=== PATIENT | male | born 1950 | race Caucasian/White ===

== ENCOUNTER → 2017-11-27 | Outpatient (CLI) | payer MEDICARE ==
[~2017-11-27] MED LIST: ASPI81TA82 PO; ATOR40TA49 PO; GLUC500C3 PO; GNP1000T4 PO; LIPO150C3 PO; METO25 PO; OCUVTAB PO; PLAV75TA PO; TAB-TAB PO; ULTR50TA PO; VITA-13 PO
--- NOTE | 2017-11-30 10:10 | RADRPT ---
EXAM DATE/TIME: 11/27/2017 14:30 [facility] COMPARISON : No previous studies available for comparison. INDICATIONS : Review images and chart for renal biopsy and cryo-ablation. HISTORY OF PRESENT ILLNESS: 67-year-old with posterior left renal mass evaluated with prior CT and MRI. Lesion would be amenable to percutaneous biopsy and cryoablation IMAGING STUDIES: Outside MRI and CT of the abdomen ASSESSMENT: Left renal mass, presumably RCCA. PLAN: Left renal biopsy and cryoablation. Azam Bynum MD on November 30, 2017 at 10:06 Board Certified Radiologist. This report was verified electronically.
== END ==
LOC: HRAD 14:19
PROVIDERS: ATTEND Urology
DX: N28.89 Other specified disorders of kidney and ureter (principal)

== ENCOUNTER 2017-12-15 06:54 | Day surgery (SDC) | payer MEDICARE ==
[2017-12-15] VITALS (10 sets, daily range): BP systolic 122–154; BP diastolic 73–91; PULSE 57–80; RESP 16–20; TEMP 97.6–97.7; O2SAT 93–98
[~2017-12-15] VITALS: Ht 175.3 cm; Wt 95.5 kg
[2017-12-15] MEDS ORDERED: ASPI-516 CHEW (07:33)
[2017-12-15] MEDS ORDERED: ATOR40TA16 PO (07:33)
[2017-12-15] MEDS ORDERED: METO25TA3 PO (07:33)
[2017-12-15] MEDS ORDERED: PLAV75TA29 PO (07:33)
[2017-12-15] MEDS ORDERED: CHLORHEXIDINE GLUCONATE 2 % 1 PACK (2 CLOTHS) TOPICAL PRN (08:15)
[2017-12-15] MEDS ORDERED: POVIDONE IODINE 5% (ANTISEPSIS KIT) 4 APPLICATIONS EACH NARE PRN (08:15)
[2017-12-15] MEDS ORDERED: METOPROLOL TARTRATE 25 MG TAB PO PRN (08:15)
[2017-12-15] MEDS ORDERED: SODIUM CHLORID 0.9% 500 ML IV PRN (08:15)
[2017-12-15] MEDS ORDERED: LACTATED RINGER'S 1000 ML IV PRN (08:15)
[2017-12-15 08:24] LABS: AUTOMATED NEUTROPHIL # 3.3 TH/MM3 (1.8-7.7); BASOPHIL % 0.5 % (0.0-2.0); EOSINOPHIL # 0.1 TH/MM3 (0-0.4); EOSINOPHIL % 2.3 % (0.0-4.0); HEMATOCRIT 44.9 % (39.0-51.0); HEMOGLOBIN 15.7 GM/DL (13.0-17.0); LYMPH % 23.1 % (9.0-44.0); LYMPHOCYTE # 1.3 TH/MM3 (1.0-4.8); MEAN CELL VOLUME 97.9 FL (80.0-100.0); MEAN CORPUSCULAR HEMOGLOBIN 34.1 PG (27.0-34.0); MEAN CORPUSCULAR HGB CONC 34.9 % (32.0-36.0); MEAN PLATELET VOLUME 6.7 FL (7.0-11.0); MONO % 14.9 % (0.0-8.0); MONOCYTE # 0.8 TH/MM3 (0-0.9); NEUT % 59.2 % (16.0-70.0); PLATELET COUNT 212 TH/MM3 (150-450); RED BLOOD COUNT 4.59 MIL/MM3 (4.50-5.90); RED CELL DISTRIBUTION WIDTH 14.6 % (11.6-17.2); WHITE BLOOD COUNT 5.5 TH/MM3 (4.0-11.0)
[2017-12-15 08:29] LABS: PROTHROMBIN TIME - PATIENT 9.7 SEC (9.8-11.6)
[2017-12-15] MEDS ORDERED: SODIUM CHLOR 0.9% 1000 ML INJ 1,000 ML IV SCH (08:30)
[2017-12-15 08:32] LABS: BICARBONATE 23.7 MEQ/L (21.0-32.0); CALCIUM 8.7 MG/DL (8.5-10.1); CREATININE 0.93 MG/DL (0.60-1.30)
[2017-12-15] MEDS ORDERED: LEVOFLOXACIN 500 MG PREMIX INJ 100 ML IV SCH (09:00)
[2017-12-15] MEDS ORDERED: LIDOCAINE 1%/EPINEPHrine 1:100,000 SOLN 50 ML VIAL OTHER ONE (10:45)
[2017-12-15] MEDS ORDERED: DO NOT ADM ANY ANTICOAGULANT DRUGS PRN (11:29)
--- NOTE | 2017-12-15 11:33 | PD.RAD ---
Post CT Procedure Prog Note Pre Procedure Diagnosis: (1) Left renal mass Post Procedure Diagnosis: (1) Left renal mass Procedure Date: Dec 15, 2017 Supervising Radiologist: Azam Bynum Anesthesia: General Plan of Activity Patient to Unit: PACU Patient Condition: Good See PACS Report for procedural detail/treatment Biopsy Imaging Guidance: CT Side: Left Biopsy Procedure: Kidney Specimen: Core Biopsy (20 gauge) Findings: Done in conjunction with 3cm cryo Azam Bynum MD Dec 15, 2017 11:33
[2017-12-15] MEDS ORDERED: MIDAZOLAM HCL 2 MG/2 ML VIAL ONE (11:40)
[2017-12-15 12:08] LABS: AUTOMATED NEUTROPHIL # 3.9 TH/MM3 (1.8-7.7); BASOPHIL % 0.6 % (0.0-2.0); EOSINOPHIL # 0.1 TH/MM3 (0-0.4); EOSINOPHIL % 1.4 % (0.0-4.0); HEMATOCRIT 42.3 % (39.0-51.0); HEMOGLOBIN 14.3 GM/DL (13.0-17.0); LYMPH % 20.6 % (9.0-44.0); LYMPHOCYTE # 1.2 TH/MM3 (1.0-4.8); MEAN CORPUSCULAR HEMOGLOBIN 33.9 PG (27.0-34.0); MEAN CORPUSCULAR HGB CONC 33.9 % (32.0-36.0); MEAN PLATELET VOLUME 6.8 FL (7.0-11.0); MONO % 8.7 % (0.0-8.0); MONOCYTE # 0.5 TH/MM3 (0-0.9); NEUT % 68.7 % (16.0-70.0); PLATELET COUNT 181 TH/MM3 (150-450); RED BLOOD COUNT 4.23 MIL/MM3 (4.50-5.90); RED CELL DISTRIBUTION WIDTH 14.6 % (11.6-17.2); WHITE BLOOD COUNT 5.7 TH/MM3 (4.0-11.0)
[2017-12-15 14:38] LABS: AUTOMATED NEUTROPHIL # 7.7 TH/MM3 (1.8-7.7); BASOPHIL % 0.1 % (0.0-2.0); EOSINOPHIL % 0.1 % (0.0-4.0); HEMATOCRIT 46.9 % (39.0-51.0); LYMPH % 7.7 % (9.0-44.0); LYMPHOCYTE # 0.7 TH/MM3 (1.0-4.8); MEAN CORPUSCULAR HEMOGLOBIN 34.1 PG (27.0-34.0); MEAN CORPUSCULAR HGB CONC 34.1 % (32.0-36.0); MEAN PLATELET VOLUME 6.9 FL (7.0-11.0); MONO % 2.2 % (0.0-8.0); MONOCYTE # 0.2 TH/MM3 (0-0.9); NEUT % 89.9 % (16.0-70.0); PLATELET COUNT 189 TH/MM3 (150-450); RED BLOOD COUNT 4.69 MIL/MM3 (4.50-5.90); RED CELL DISTRIBUTION WIDTH 14.7 % (11.6-17.2); WHITE BLOOD COUNT 8.6 TH/MM3 (4.0-11.0)
--- NOTE | 2017-12-15 15:29 | EKG ---
Date Performed: 12/15/2017 Time Performed: 07:45:23 PTAGE: 67 years EKG: Sinus rhythm BORDERLINE LEFT AXIS DEVIATION LOW QRS VOLTAGE IN PRECORDIAL LEADS MODERATE VOLTAGE CRITERIA FOR LVH , CONSIDER NORMAL VARIANT BORDERLINE ECG NO PREVIOUS TRACING DOCTOR: Abdi Reyes Interpretating Date/Time 12/15/2017 15:22:21
--- NOTE | 2017-12-15 16:57 | RADRPT ---
EXAM DATE/TIME: 12/15/2017 09:59 INDICATIONS : Left renal mass. Anesthesia and pain control was provided by the Anesthesia department. DEVICE(S): 1.) Cryoablation probe 2.4mm MEDICAL HISTORY : Cardiovascular disease. Benign prostatic hyperplasia, (BPH) SURGICAL HISTORY : None. ENCOUNTER: Initial ACUITY: 1 day PAIN SCORE: 0/10 LOCATION: Left Renal PROCEDURE : 1. CT guided cryoablation. Under sterile conditions and using aseptic technique with CT guidance the mass was localized and sati sfactory approach was taken to access the lesion. Using automated exposure control and adjustment of the mA and/or kV according to patient size, radiation dose was kept as low as reasonably achievable to obtain optimal diagnostic quality images. DICOM format image data is available electronically for review and comparison. Control de Pacientes Cryoprobes were employed using percutaneous technique employing the prescribed probes. A freeze-thaw, freeze-thaw technique was employed and serial imaging demonstrated an ice ball encomp assing the entire lesion. Post procedure images demonstrate expected postoperative changes without e vidence of hematoma. CONCLUSION: Uncomplicated cryoablation as above. Procedure was done in conjunction with a 20 gauge core bio psy Azam Bynum MD on December 15, 2017 at 16:52 Board Certified Radiologist. This report was verified electronically.
--- NOTE | 2017-12-15 16:58 | RADRPT ---
EXAM DATE/TIME: 12/15/2017 09:59 [facility] COMPARISON: No previous studies available for comparison. INDICATIONS : Left renal mass. BIOPSY SITE: Left Renal Anesthesia and pain control was provided by the Anesthesia department. Prophylactic antibiotics were administered with appropriate pre-procedure timing. DEVICE(S): 1.) 20 gauge Temno core biopsy needle MEDICAL HISTORY : Cardiovascular disease. Benign prostatic hyperplasia, (BPH) SURGICAL HISTORY : None. ENCOUNTER: Initial ACUITY: 1 day PAIN SCORE: 0/10 LOCATION: Right Renal A total of one core specimen(s) were obtained and sent to the laboratory for pathologic evaluation. PROCEDURE: 1. CT guided renal biopsy. 2. Conscious sedation with continuous EKG and oximetry monitoring. Prior to the procedure informed consent was obtained. Any appropriate prior imaging studies were rev iewed. Using automated exposure control and adjustment of the mA and/or kV according to patient size, radiat ion dose was kept as low as reasonably achievable to obtain optimal diagnostic quality images. DICOM format image data is available electronically for review and comparison. The site was prepped in a sterile fashion. Full sterile technique was used, including cap, mask, milton rile gloves and gown and a large sterile sheet. Hand hygiene and 2% chlorhexidine and/or betadine/al cohol prep was utilized per protocol for cutaneous antisepsis. The skin and subcutaneous tissues wer e infiltrated with local anesthetic solution. With CT guidance the previously identified target was localized. Biopsy was performed using the presc ribed needle as above. Adequate hemostasis was obtained with compression at the puncture site. Follow-up CT scan reveals no hemorrhage. The patient tolerated the procedure well and there were no complications. The patient was returned to the Radiology Outpatient Unit in stable condition. CONCLUSION: Uncomplicated CT guided biopsy. Procedure was done in conjunction with cryoablation. Azam Bynum MD on December 15, 2017 at 16:55 Board Certified Radiologist. This report was verified electronically.
== END 2017-12-15 17:40 | disposition home or self-care (01) ==
LOC: HROP 06:54 → HRIP 06:54 → HROP 17:40
PROVIDERS: ATTEND Urology
DX: C64.2 Malignant neoplasm of left kidney, except renal pelvis (principal); I25.10 Atherosclerotic heart disease of native coronary artery without angina pectoris; N40.0 Benign prostatic hyperplasia without lower urinary tract symptoms; R31.9 Hematuria, unspecified; I10 Essential (primary) hypertension; K21.9 Gastro-esophageal reflux disease without esophagitis; M51.36 Other intervertebral disc degeneration, lumbar region; Z95.5 Presence of coronary angioplasty implant and graft; Z01.818 Encounter for other preprocedural examination; Z01.810 Encounter for preprocedural cardiovascular examination
CPT/HCPCS: 50200; 50593; 77012; 77013; 80048; 85025; 85610; 85730; 88305; 93005; C2618; J1956; J2250; J3010; J7030

== ENCOUNTER 2017-12-23 13:16 | Day surgery (SDC) | payer MEDICARE ==
[~2017-12-23 13:16] MED LIST changes: +ASPI-516 CHEW; -ASPI81TA82 PO; +ATOR40TA16 PO; -ATOR40TA49 PO; -GLUC500C3 PO; -GNP1000T4 PO; -LIPO150C3 PO; -METO25 PO; +METO25TA3 PO; -OCUVTAB PO; -PLAV75TA PO; +PLAV75TA29 PO; -TAB-TAB PO; -ULTR50TA PO; -VITA-13 PO
--- NOTE | 2017-12-23 15:43 | RADRPT ---
EXAM DATE/TIME: 12/23/2017 00:00 [facility] COMPARISON : INDICATIONS : <F/U CRYOABLATION<?>> OBJECTIVE: Temperature: 97.4 Heart Rate: 67 Blood Pressure: 137/80 Respiratory: 19 Oximetry: 99 PNEUMONIA VACCINE: HISTORY OF PRESENT ILLNESS: ? PAST MEDICAL HISTORY : 1. CAD 2. CORONARY STENTS 3. HIGH CHOLESTEROL 4. RENAL MASS 5. DIVERTICULITIS PAST SURGICAL HISTORY : 1. L2-L5 LAMUNECTOMY SOCIAL HISTORY : Social alcohol use. ALLERGIES: Penicillin MEDICATIONS: 1. Rbimnbu59 mg q.d. 2. ATORVASATIN 40 mg q.h.s. 3. Plavix (Clopidogrel Bisulfate) 75 mg q.d. METOPROLOL 50 mg b.i.d. PHYSICAL EXAMINATION: Patient in no acute distress. Access site for cryoablation in the lower back is healing appropriately IMAGING STUDIES: Procedural studies were reviewed with the patient and his . 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 ASSESSMENT: Patient is doing very well post cryoablation of left renal mass. PLAN: Followup with Dr. Salcedo. Recommend followup CT or MRI of the abdomen with and without contrast i n 3 months to ensure efficacy of treatment TIME SPENT: 10 minutes Azam Bynum MD on December 23, 2017 at 15:38 Board Certified Radiologist. This report was verified electronically.
== END 2017-12-23 14:00 | disposition home or self-care (01) ==
LOC: HRIP 13:16 → HROP 13:16
PROVIDERS: ATTEND Radiology Body Imaging
DX: N28.89 Other specified disorders of kidney and ureter (principal); E78.00 Pure hypercholesterolemia, unspecified; I25.10 Atherosclerotic heart disease of native coronary artery without angina pectoris; Z95.5 Presence of coronary angioplasty implant and graft; Z88.0 Allergy status to penicillin